=== PATIENT | male | born 2000 | race Caucasian/White ===

== ENCOUNTER 2022-11-03 19:56 | Emergency (ER) | payer SELFPAY ==
[~2022-11-03] VITALS: Ht 190.5 cm; Wt 104.6 kg
[2022-11-03 19:57] VITALS: BP 131/81
== END 2022-11-03 21:11 | disposition left against medical advice (07) ==
LOC: M ED 19:56
DX: Z53.21 Procedure and treatment not carried out due to patient leaving prior to being seen by health care provider (principal)

== ENCOUNTER 2022-11-05 20:43 | Emergency (ER) | payer SELFPAY ==
[~2022-11-05] VITALS: Ht 193 cm; Wt 100.0 kg
[2022-11-05] MEDS ORDERED: ACET-861 PO (20:56)
[2022-11-05] MEDS ORDERED: LIDOCAINE VISCOUS 2% SOLN 15ML UDC SS ONE (23:35)
[2022-11-05] MEDS ORDERED: BENZONATATE 100MG CAPSULE PO ONE (23:35)
[2022-11-05] MEDS ORDERED: DEBR6.5S4 OTIC (23:38)
[2022-11-05] MEDS ORDERED: BENZ200C70 PO (23:38)
[2022-11-05] MEDS ORDERED: LIDO2SOL17 PO (23:38)
[2022-11-05 23:52] VITALS: BP 132/79
[2022-11-05] MEDS ORDERED: ACETAMINOPHEN 325 MG TAB PO ONE (23:55)
== END 2022-11-06 00:09 | disposition home or self-care (01) ==
LOC: M ED 20:43
DX: J02.9 Acute pharyngitis, unspecified (principal); H61.23 Impacted cerumen, bilateral; R05.9 Cough, unspecified; R50.9 Fever, unspecified; Z53.20 Procedure and treatment not carried out because of patient's decision for unspecified reasons; Z79.899 Other long term (current) drug therapy

== ENCOUNTER 2022-11-12 19:48 | Emergency (ER) | payer SELFPAY ==
[~2022-11-12] VITALS: Ht 193 cm; Wt 102.2 kg
[~2022-11-12 19:48] MED LIST: ACET-861 PO; BENZ200C70 PO; DEBR6.5S4 OTIC; LIDO2SOL17 PO
[2022-11-13 00:13] VITALS: BP 134/75
== END 2022-11-13 00:14 | disposition home or self-care (01) ==
LOC: M ED 19:48
DX: R05.3 Chronic cough (principal); F32.A Depression, unspecified; F17.290 Nicotine dependence, other tobacco product, uncomplicated; Z79.899 Other long term (current) drug therapy

== ENCOUNTER 2022-12-12 11:31 | Emergency (ER) | payer BC, SELFPAY ==
[~2022-12-12] VITALS: Ht 193 cm; Wt 102.3 kg
[2022-12-12 13:02] LABS: BASO # 0.1 10^3/uL (0.0-0.2); BASO % 0.5 % (0.0-1.0); EOS # 0.2 10^3/uL (0.0-0.5); EOS % 1.7 % (0.0-3.0); HEMATOCRIT 53.5 % (42.0-52.0); HEMOGLOBIN 18.1 g/dl (13.5-17.5); LYMPH # 0.9 10^3/uL (1.5-5.0); LYMPH % 6.6 % (24.0-44.0); MEAN CORPUSCULAR HEMOGLOBIN 29.6 pg (27.0-33.0); MEAN CORPUSCULAR HGB CONC 33.8 g/dl (32.0-36.5); MEAN CORPUSCULAR VOLUME 87.4 fl (80.0-96.0); MONO # 0.5 10^3/uL (0.0-0.8); MONO % 4.2 % (2.0-8.0); NEUTROPHILS # 11.2 10^3/uL (1.5-8.5); NEUTROPHILS % 86.6 % (36.0-66.0); PLATELET COUNT, AUTOMATED 231 10^3/uL (150-450); RED BLOOD COUNT 6.12 10^6/uL (4.30-6.10); WHITE BLOOD COUNT 12.9 10^3/uL (4.0-10.0)
[2022-12-12] MEDS ORDERED: NS 1,000 ML IV ONE (13:05)
[2022-12-12] MEDS ORDERED: ONDANSETRON 4MG 2ML VIAL IV ONE (13:05)
[2022-12-12 13:24] LABS: BLOOD UREA NITROGEN 16 MG/DL (9-23); CALCIUM LEVEL 10.2 MG/DL (8.5-10.1); CARBON DIOXIDE LEVEL 22 MMOL/L (20-31); CHLORIDE LEVEL 107 MMOL/L (98-107); CREATININE FOR GFR 1.09 MG/DL (0.70-1.30); GLOMERULAR FILTRATION RATE > 60.0 (>60); GLUCOSE, FASTING 125 MG/DL (60-100); POTASSIUM SERUM 3.9 MMOL/L (3.5-5.1); SODIUM LEVEL 141 MMOL/L (136-145)
[2022-12-12 13:30] LABS: RSV AMPLIFICATION NEGATIVE (NEGATIVE)
[2022-12-12] MEDS ORDERED: METOCLOPRAMIDE INJ 10MG/2ML VIAL IV ONE (15:10)
[2022-12-12] MEDS ORDERED: NS 1,000 ML IV SCH (15:10)
[2022-12-12] MEDS ORDERED: ONDA4TAB6 PO (16:41)
[2022-12-12] MEDS ORDERED: ACETAMINOPHEN TAB 650MG DOSE (2X325MG) PO ONE (17:05)
[2022-12-12 17:06] VITALS: BP 137/76
== END 2022-12-12 17:25 | disposition home or self-care (01) ==
LOC: M ED 11:31
DX: A08.11 Acute gastroenteropathy due to Norwalk agent (principal); F32.A Depression, unspecified; F12.10 Cannabis abuse, uncomplicated; Z79.899 Other long term (current) drug therapy
CPT/HCPCS: 74018; 80048; 85025; 87507; 87631; 96361; 96374; 96375; 99284; J2405

== ENCOUNTER → 2023-10-28 | Outpatient (REF) ==
[~2023-10-28] MED LIST changes: +LIDO15SO PO; -LIDO2SOL17 PO; +ONDA4TAB6 PO
[2023-10-28 14:15] LABS: RSV AMPLIFICATION NEGATIVE (NEGATIVE)
== END ==
LOC: M EMP 12:42
PROVIDERS: ATTEND Family Medicine
DX: Z11.52 Encounter for screening for COVID-19 (principal)

== ENCOUNTER → 2025-02-06 | Outpatient (CLI) | payer BC ==
[~2025-02-06] MED LIST changes: -LIDO15SO PO; +LIDO15SO8 PO; +ONDA-282 PO; -ONDA4TAB6 PO
[2025-02-06 08:50] LABS: BASO % 0.8 % (0.0-1.0); EOS # 0.2 10^3/uL (0.0-0.5); EOS % 2.8 % (0.0-3.0); HEMATOCRIT 47.5 % (42.0-52.0); HEMOGLOBIN 16.6 g/dl (13.5-17.5); LYMPH # 1.5 10^3/uL (1.5-5.0); LYMPH % 28.7 % (24.0-44.0); MEAN CORPUSCULAR HEMOGLOBIN 30.3 pg (27.0-33.0); MEAN CORPUSCULAR HGB CONC 34.9 g/dl (32.0-36.5); MEAN CORPUSCULAR VOLUME 86.7 fl (80.0-96.0); MONO # 0.5 10^3/uL (0.0-0.8); MONO % 9.5 % (2.0-8.0); NEUTROPHILS # 3.1 10^3/uL (1.5-8.5); PLATELET COUNT, AUTOMATED 214 10^3/uL (150-450); RED BLOOD COUNT 5.48 10^6/uL (4.30-6.10); WHITE BLOOD COUNT 5.3 10^3/uL (4.0-10.0)
[2025-02-06 09:15] LABS: HEMOGLOBIN A1c 5.1 % (4.0-6.0)
[2025-02-06 09:26] LABS: ALKALINE PHOSPHATASE 65 U/L (40-129); ALT/SGPT 115 U/L (7.0-40); AST/SGOT 46 U/L (<34); BILIRUBIN,TOTAL 0.5 MG/DL (0.3-1.2); BLOOD UREA NITROGEN 12 MG/DL (9-23); CALCIUM LEVEL 9.1 MG/DL (8.5-10.1); CARBON DIOXIDE LEVEL 25 MMOL/L (20-31); CHLORIDE LEVEL 107 MMOL/L (98-107); CHOLESTEROL LEVEL 156 MG/DL (<200); CHOLESTEROL RISK RATIO 4.41 (<5); CREATININE FOR GFR 0.92 MG/DL (0.70-1.30); GLOMERULAR FILTRATION RATE > 60.0 (>60); GLUCOSE, FASTING 100 MG/DL (60-100); HDL CHOLESTEROL 35.3 MG/DL (>40); LDL CHOLESTEROL 93.9 MG/DL (<100); MAGNESIUM LEVEL 2.2 MG/DL (1.8-2.4); NON-HDL-C 120.7 MG/DL; POTASSIUM SERUM 4.1 MMOL/L (3.5-5.1); SODIUM LEVEL 140 MMOL/L (136-145); TRIGLYCERIDES LEVEL 134 MG/DL (<150)
[2025-02-06 09:28] LABS: FREE T4 1.19 NG/DL (0.89-1.76); THYROID STIMULATING HORMONE 1.007 uIU/ML (0.55-4.78); TOTAL 25(OH) VITAMIN D 7.4 NG/ML (20.0-100.0)
== END ==
LOC: M EKG 08:03
PROVIDERS: ATTEND Nurse Practitioner Psychiatric/Mental Health
DX: F43.20 Adjustment disorder, unspecified (principal)

== ENCOUNTER → 2025-02-13 | Outpatient (REF) | payer BC ==
[2025-02-13 15:10] LABS: ALBUMIN 3.9 G/DL (3.2-5.2); ALKALINE PHOSPHATASE 58 U/L (40-129); ALT/SGPT 89 U/L (7.0-40); AST/SGOT 40 U/L (<34); BILIRUBIN,TOTAL 0.6 MG/DL (0.3-1.2); BLOOD UREA NITROGEN 10 MG/DL (9-23); CALCIUM LEVEL 9.3 MG/DL (8.5-10.1); CARBON DIOXIDE LEVEL 26 MMOL/L (20-31); CHLORIDE LEVEL 107 MMOL/L (98-107); CHOLESTEROL LEVEL 163 MG/DL (<200); CHOLESTEROL RISK RATIO 4.55 (<5); CREATININE FOR GFR 0.89 MG/DL (0.70-1.30); GLOMERULAR FILTRATION RATE > 60.0 (>60); GLUCOSE, FASTING 98 MG/DL (60-100); HDL CHOLESTEROL 35.8 MG/DL (>40); LDL CHOLESTEROL 102.2 MG/DL (<100); NON-HDL-C 127.2 MG/DL; POTASSIUM SERUM 4.1 MMOL/L (3.5-5.1); SODIUM LEVEL 142 MMOL/L (136-145); THYROID STIMULATING HORMONE 1.375 uIU/ML (0.55-4.78); TOTAL PROTEIN 6.9 G/DL (5.7-8.2); TRIGLYCERIDES LEVEL 125 MG/DL (<150)
[2025-02-13 15:11] LABS: TOTAL 25(OH) VITAMIN D 19.3 NG/ML (20.0-100.0)
[2025-02-13 15:15] LABS: HEMOGLOBIN 15.6 g/dl (13.5-17.5); MEAN CORPUSCULAR HEMOGLOBIN 29.7 pg (27.0-33.0); MEAN CORPUSCULAR HGB CONC 33.9 g/dl (32.0-36.5); MEAN CORPUSCULAR VOLUME 87.5 fl (80.0-96.0); PLATELET COUNT, AUTOMATED 260 10^3/uL (150-450); RED BLOOD COUNT 5.26 10^6/uL (4.30-6.10); WHITE BLOOD COUNT 4.9 10^3/uL (4.0-10.0)
[2025-02-13 15:36] LABS: HEMOGLOBIN A1c 4.7 % (4.0-6.0)
== END ==
LOC: M LAB REF 12:05
PROVIDERS: ATTEND Student in an Organized Health Care Education/Training Program
DX: Z00.00 Encounter for general adult medical examination without abnormal findings (principal)